=== PATIENT | female | born 1945 | race Caucasian/White ===

== ENCOUNTER 2018-01-12 07:32 | Inpatient (IN) | payer OTHER ==
[~2018-01-12] VITALS: Ht 157.5 cm; Wt 59.0 kg
[2018-01-12] MEDS ORDERED: LASIX40 MG PO (07:35)
[2018-01-12] MEDS ORDERED: METOPROLOL SUCC50 MG PO (07:36)
[2018-01-12] MEDS ORDERED: DIOVAN40 MG PO (07:36)
[2018-01-12] MEDS ORDERED: LEXAPRO5 MG PO (07:36)
[2018-01-12] MEDS ORDERED: SPIRIVA RESPIMAT4 G1 IH (07:37)
[2018-01-12] MEDS ORDERED: ESCITALOPRAM OX10 MG PO (07:37)
[2018-01-25] MEDS ORDERED: ADULT ASPIRIN81 MG PO (09:30)
[2018-01-25] MEDS ORDERED: LIPITOR20 MG PO (09:30)
[2018-01-25] MEDS ORDERED: DILTIAZEM HCL120 MG PO (09:30)
[2018-01-25] MEDS ORDERED: PREDNISONE20 MG PO (14:21)
== END 2018-01-26 11:07 | disposition home or self-care (01) | DRG 871 ==
LOC: ER 07:32 → ICU-2 12:39 → ICU 01-17 10:55 → MEDI 01-18 14:06
PROC: 3E0F7GC Introduction of Other Therapeutic Substance into Respiratory Tract, Via Natural or Artificial Opening (ICD-10-PCS; principal; 2018-01-12)
PROC: 4A033R1 Measurement of Arterial Saturation, Peripheral, Percutaneous Approach (ICD-10-PCS; 2018-01-12)
PROC: B246ZZZ Ultrasonography of Right and Left Heart (ICD-10-PCS; 2018-01-13)
PROC: 4A12X4Z Monitoring of Cardiac Electrical Activity, External Approach (ICD-10-PCS; 2018-01-18)
PROC: BB24ZZZ Computerized Tomography (CT Scan) of Bilateral Lungs (ICD-10-PCS; 2018-01-19)
DX: A41.9 Sepsis, unspecified organism (principal); R65.21 Severe sepsis with septic shock; J18.9 Pneumonia, unspecified organism; J44.1 Chronic obstructive pulmonary disease with (acute) exacerbation; N17.8 Other acute kidney failure; B37.0 Candidal stomatitis; J90 Pleural effusion, not elsewhere classified; B37.82 Candidal enteritis; R09.02 Hypoxemia; R00.0 Tachycardia, unspecified; I10 Essential (primary) hypertension